=== PATIENT | female | born 1985 | race Two or more races ===

== ENCOUNTER 2021-08-29 06:51 | Emergency (ER) | payer SELFPAY ==
[~2021-08-29] VITALS: Ht 167.6 cm; Wt 70.3 kg
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
--- NOTE | 2021-08-29 07:28 | NUR ---
X RAY AT BEDSIDE
--- NOTE | 2021-08-29 08:42 | NUR ---
DR MANDUJANO AT BEDSIDE
[2021-08-29] MEDS ORDERED: KETOROLAC TROMETHAMINE INJ 60 MG/2 ML VIAL IM ONE ×2 (08:50→09:00)
[2021-08-29] MEDS ORDERED: ACET1TAB23 PO (09:21)
--- NOTE | 2021-08-29 09:25 | NUR ---
Patient discharged to home in stable condition. Written and verbal after care instructions given. Patient verbalizes understanding of instruction.
[2021-08-29 09:26] VITALS: BP 122/72
== END 2021-08-29 09:33 | disposition home or self-care (01) ==
LOC: ER 07:01
DX: S80.12XA Contusion of left lower leg, initial encounter (principal); V43.62XA Car passenger injured in collision with other type car in traffic accident, initial encounter; Y93.89 Activity, other specified; Y92.410 Unspecified street and highway as the place of occurrence of the external cause; Y99.8 Other external cause status
CPT/HCPCS: 73590; 96372; 99283; J1885